=== PATIENT | male | born 1950 | race Caucasian/White ===

== ENCOUNTER 2024-11-03 13:38 | Observation (INO) | payer OTHER, SELFPAY ==
[2024-11-03] VITALS (19 sets, daily range): BP systolic 106–190; BP diastolic 56–122; PULSE 79–105; RESP 16–21; TEMP 36.2–37.1; O2SAT 90–97; BMI 33.1; BMI 33.5
--- NOTE | 2024-11-03 14:00 | EKG12_ITS ---
Test Reason : Blood Pressure : */* mmHG Vent. Rate : 99 BPM Atrial Rate : 99 BPM P-R Int : 162 ms QRS Dur : 98 ms QT Int : 338 ms P-R-T Axes : 51 -11 77 degrees QTcB Int : 433 ms Normal sinus rhythm Inferior infarct , age undetermined Cannot rule out Anterior infarct , age undetermined Abnormal ECG Confirmed by RUI GRACE, ALVIN ([id number]), news editor MARTHA TIAN ([id number]) on 11/07/2024 10:55:07 AM Referred By: Confirmed By: ALVIN FABIAN MD
[2024-11-03 14:16] LABS: Absolute Lymphocyte Count 1.12 X10^3/uL (0.83-4.51); Absolute Neutrophil Count 6.3 X10^3/uL (2.0-7.7); Basophil# 0.04 X10^3/uL; Basophil% 0.5 % (0-1); Eosinophil# 0.11 X10^3/uL; Eosinophils% 1.3 % (0-5); Hematocrit 44.1 % (40-54); Hemoglobin 15.3 g/dL (13.0-16.5); Lymphocyte # 1.12 X10^3/ul (0.83-4.51); Lymphocyte % 13.6 % (19-41); Mean Corp Hgb Conc 34.7 g/dL (32-36); Mean Corpuscular Hgb 31.4 pg (27.0-32.0); Mean Corpuscular Volume 90.6 fL (80-94); Monocyte# 0.66 X10^3/uL; NRBC Flagged by Analyzer 0 % (0-5); Neutrophil # 6.28 X10^3/uL (2.7-7.7); Neutrophil % 76.4 % (47-70); Platelet Count 219 K/mm3 (150-450); RBC Distribution Width CV 13.1 % (11.6-14.6); RBC Distribution Width SD 43.7 fl (35.1-43.9); Red Blood Count 4.87 M/mm3 (4.6-6.2); White Blood Count 8.2 K/mm3 (4.4-11.0)
--- NOTE | 2024-11-03 14:20 | RAD_ITS ---
EXAM: XR Left Hand Complete, 3 or More Views CLINICAL INDICATION: INJURY/PAIN TECHNIQUE: Frontal, lateral and oblique views of the left hand. COMPARISON: No relevant prior studies available. FINDINGS: BONES/JOINTS: Unremarkable. No acute fracture. No dislocation. SOFT TISSUES: Lacerated 5th metacarpal. The distal fragment is placed laterally. Laceration of the 4th proximal phalanx with the distal fragment angulated medially. Soft tissue swelling. No radiopaque foreign body. RAD/Hand Min 3 Views IMPRESSION: Severe laceration of the 4th and 5th fingers as above. Reading Location: [facility]
[2024-11-03] MEDS: Cefazolin 1 GM/50 ML BAG IV (14:24)
[2024-11-03] MEDS: Ondansetron 4 MG/2 ML Vial IV (14:25)
[2024-11-03] MEDS: HYDROmorphone 1 MG/ML Syringe 0.5 MG IV ×2 (14:25→15:22)
[2024-11-03] MEDS: Diphth,Pertuss(Acell),Tet Vac 0.5 ML Vial IM (14:28)
[2024-11-03 14:46] LABS: Anion Gap 11 (5-15); BUN 18 mg/dL (4-19); BUN/Creat Ratio 20.3 RATIO (10-20); Calcium,Total 9.1 mg/dL (7.6-11.0); Carbon Dioxide 23.5 mmol/L (21.0-32.0); Chloride 107 mmol/L (98-108); Creatinine, Serum 0.91 mg/dL (0.70-1.20); EST Glomerular Filtration Rate 89 (>60); Estimated Creatinine Clearance 71.08 ml/min (50-250); Glucose 151 mg/dL (70-99); Potassium 3.9 mmol/L (3.3-5.1); Sodium Level 141 mmol/L (133-145)
--- NOTE | 2024-11-03 14:48 | EX.ED.GENINJ ---
HPI History of Present Illness Chief Complaint: Trauma Detail of Chief Complaint: Partial amputation ulnar side of left hand Informant: patient Onset/Context/Timing Onset: Today and Hours Mechanism/Context: Blunt Injury Location of pain/injuries: Left hand Location: Left hand, little finger and ring finger Current Severity: Moderate Maximum Severity: Severe Worsened by: Injury Relieved by: nothing Associated Symptoms Associated Symptoms: Positive for Loss of function Narrative Narrative: Patient is a 74-year-old [id number] male. He denies allergies to antibiotics. Tetanus is not up-to-date. Patient has amputation of the left little finger comminuted open fracture involving the middle and proximal phalanx of the left ring finger. He has absent 2 point discrimination of the left ring finger. The proximal portion of the fifth metacarpal is exposed. He is on no anticoagulant or antithrombotic. He is uncertain of medicines he is taking. He asked for me to wait for his to arrive. Patient states he has not eaten or had anything to drink since 12 noon. Tetanus Immunization: Unknown Prior similar symptoms: No Recent Illness/Hospitalization: No PFSH PFSH Medical History no medical history Allergy/AdvReac Type Severity Reaction Status Date / Time No Known Allergies Allergy Verified 11/03/24 13:45 Family History no significant family his Surgical History no surgical history Social History (Updated 11/03/24 @ 14:[address] Duy Davis MD) household members: spouse Smoking Status: Light Smoker (<10/day) ROS ROS ED Constitutional Constitutional ED: Denies chills, fever(s) or subjective Eyes Eyes: Denies blurry vision or change in vision Cardiovascular Cardiovascular: Denies chest pain or palpitations Respiratory/Chest Respiratory/Chest: Denies cough or dyspnea Gastrointestinal Gastrointestinal: Denies nausea or vomiting Integumentary Reports rash and other Details: Patient has amputation of the left little finger loss of tissue involving the ulnar side of the hand and left ring finger. ; Denies abscess or Abrasions Neurologic Neurologic: Reports paresthesias Psychiatric Psychiatric: Denies anxiety Hematologic/Lymphatic Hematologic/Lymphatic: Denies easy bleeding or easy bruising EXAM Physical Exam Const Vital Signs: 11/03/24 13:40 11/03/24 13:45 11/03/24 14:38 Temperature 98.7 F 98.7 F Temperature Source Oral Oral Pulse Rate 105 H 105 H 95 Respiratory Rate 18 18 21 H Blood Pressure 181/99 H 166/100 H 190/97 H Blood Pressure Mean 126 122 128 Pulse Ox 94 94 95 Oxygen Delivery Method Room Air Room Air Room Air 11/03/24 14:45 Temperature 98.7 F Temperature Source Oral Pulse Rate 95 Respiratory Rate 18 Blood Pressure 190/97 H Blood Pressure Mean 128 Pulse Ox 95 Oxygen Delivery Method Room Air Positive well nourished and well developed General Appearance ED: well developed; Negative for NAD HEENT atraumatic; Negative for tenderness Nose: Negative for septum abnormal Eyes PERRL and EOMs intact bilaterally Resp normal respiratory effort and clear to auscultation bilaterally Cardio regular rhythm, S1 normal heart sound, S2 normal heart sound and no murmurs Rate: regular rate GI normal to inspection, nondistended, normoactive bowel sounds, non-tender, non-distended and no masses Extremity Negative for normal to inspection or full ROM General Extremety ED: Yes deformity General Extremity: deformity Neuro oriented x3, CN's II-XII intact bilaterally, No moves all extremities, No no focal motor deficits and No no sensory deficits noted Neuro Narrative: Patient has absent 2 point segmentations left ring finger. Surprise Coma Scale: document GCS findings Spontaneous Obeys Commands Oriented 15 Sensorium / Orientation: alert Psych mental status grossly normal and thought process normal Skin Skin Narrative: Amputation of the ulnar distal portion of the left hand, left little finger and skin loss with open fracture of the proximal and middle phalanx of the ring finger with tendon involvement and neurovascular involvement MDM MDM MDM Narrative Medical decision making narrative: Patient was made NPO. See 1 g of Ancef and tetanus was updated. Plastic/hand was paged. Lab Data Attestation: I reviewed the patient's lab results. Lab results narrative: CBC is unremarkable. BMP is unremarkable. Glucose is elevated 151 with a normal CO2 anion gap. Labs: Laboratory Results - last 24 hr 11/03/24 14:08 WBC 8.2 RBC 4.87 Hgb 15.3 Hct 44.1 MCV 90.6 MCH 31.4 MCHC 34.7 RDW Std Deviation 43.7 RDW Coeff of Angelita 13.1 Plt Count 219 MPV 9.0 Immature Gran % (Auto) 0.200 Neut % (Auto) 76.4 H Lymph % (Auto) 13.6 L [place] % (Auto) 8.0 Eos % (Auto) 1.3 Baso % (Auto) 0.5 Absolute Neuts (auto) 6.3 Absolute Lymphs (auto) 1.12 Nucleated RBC % 0 Sodium 141 Potassium 3.9 Chloride 107 Carbon Dioxide 23.5 Anion Gap 11 BUN 18 Creatinine 0.91 Estim Creat Clear Calc 71.08 Est GFR (MDRD) Non-Af 89 BUN/Creatinine Ratio 20.3 H Glucose 151 H Calcium 9.1 Radiography Chest X-Ray - ED: Read by ED Physician (Three-view x-ray of the left hand was obtained with the amputated digit (left little finger patient has amputation of the distal portion of the fifth metacarpal bone of the left little finger reveals multiple fractures and in my opinion is not salvageable. There is no fragments of the metacarpal pr) Diagnostic Testing: Clinical Impression(s) from Imaging Studies Hand X-Ray 11/03/24 14:20 IMPRESSION: Severe laceration of the 4th and 5th fingers as above. Reading Location: [facility] EKG Initial EKG: Attestation: I personally reviewed and interpreted this EKG as follows: Interpretation: Sinus Rhythm (Rate is 99. [place] interval is under 60 ms. Cures duration 90 durations 138 ms. [place] is normal. I am in disagreement with the computer with respect to inferior infarct of undetermined age. Patient anterior leads are not consistent with an acute CA either.) Management Discussion w/another healthcare provider: Sleeper Cutter (Dr. Azeem Looney saw patient in the ER. Patient is going to the OR.) Discharge Plan Triage Chief Complaint: Trauma ED Provider: Duy Davis Dx/Rx/DC Orders Clinical Impression: Open fracture of fifth metacarpal bone of left hand, Amputation of left little finger with complication, Open comminuted fracture of proximal phalanx of finger Print Language: Wolof
--- NOTE | 2024-11-03 15:45 | AMP_PTH ---
PATIENT: MITRA GARCIA LOC: [facility] U#:[id number] AGE/SX: 74/M ROOM: [facility] RE11/03/[address]: Dr. Azeem Looney MD : 1950 BED: 1 DIS: 11/04/2024 SPEC #: [id number] RECD: 11/04/24 13:25 STATUS: IMELDA REJessica #: [id number] KENYA: 11/03/24 15:[address]: Azeem Looney DEPT: SURGICAL PATHOLOGY RECD BY: Ilya Lew ENTERED: 11/04/24 13:26 SP TYPE: Amputation OTHR DR: Dr. Rj Leong, DO Tissues: A - Finger, NOS Procedures: Decalcification bone/plaque Surgery Specimen Level II HEADER OPERATION: Repair, tendon hand, foot, digit PRE-OP DIAGNOSIS: Open comminuted fracture of proximal phalanx of finger, amputation of left little finger with complication, open fracture of fifth metacarpal bone of left hand TISSUE SUBMITTED: A- Left small and ring fingers MICROSCOPIC DIAGNOSIS A. Left small and left ring fingers, amputation: * Reactive/degenerative change. MICROSCOPIC DESCRIPTION Slides are reviewed. GROSS DESCRIPTION A. Received in fixative is one container labeled with the patient's name and designated Left small and ring fingers. The specimen consists of two fingers. One finger measures 6 x 2.6 x 2.2cm and the other finger with a tail of soft tissue on it measures altogether 14.5 x 2 x 1.7cm. One transverse section of each finger is submitted after decalcification. RS2 JS.mr 11/07/2024 CPT:38239,11249
--- NOTE | 2024-11-03 15:52 | PCM.PRE.AN2 ---
ASA Classification* ASA Classification ASA Classification: 2 and E (HTNsive, patient is emergent and has no known medical history. NO follow up with physician ) Assessment & Plan Anesthesia* Anesthesia Assessment Anesthesia Assessment: Discussed sedation and/or anesthesia options, risks, benefits, and alternatives with patient/parents/legal guardian/POA. Questions invited. The patient/parents/legal guardian/POA seems to understand and agrees to proceed with anesthesia plan. Reviewed the physical assessment, medical history, allergy history and patient home medications list prior to surgery/procedure/anesthetic and documented any changes. Performed airway and anesthesia risk assessments. Anesthesia Type Anesthesia Type: General (RSI) History Source History Obtained from:: Patient and Chart Anesthesia Focused Assessment* Temperature: 98.7 F Pulse Rate: 95 Blood Pressure: 163/96 Respiratory Rate: 18 Pulse Ox: 97 Airway Assessment Mouth opens: >3 cm Mallampati Score: III Teeth Condition: Chipped/Broken and Missing Neck Range of motion (ROM): Full ROM Focused Labs Anesthesia Preop lab: CBC WBC 8.2 K/mm3 (4.4-11.0) 11/03/24 14:08 11/03/24 RBC 4.87 M/mm3 (4.6-6.2) 11/03/24 14:08 11/03/24 Hgb 15.3 g/dL (13.0-16.5) 11/03/24 14:08 11/03/24 Hct 44.1 % (40-54) 11/03/24 14:08 11/03/24 Plt Count 219 K/mm3 (150-450) 11/03/24 14:08 11/03/24 CHEMISTRY Potassium 3.9 mmol/L (3.3-5.1) 11/03/24 14:08 11/03/24 Sodium 141 mmol/L (133-145) 11/03/24 14:08 11/03/24 BUN 18 mg/dL (4-19) 11/03/24 14:08 11/03/24 Creatinine 0.91 mg/dL (0.70-1.20) 11/03/24 14:08 11/03/24 Glucose 151 mg/dL (70-99) H 11/03/24 14:08 11/03/24 COAG Pre-Assessment Diagnosis/Proposed Procedure Planned Operative Procedure(s): Repair, tendon, hand, foot (L) Anesthesia History Anesthesia History - painter apprentice: Anesthesia History - painter apprentice Hx Hospitalization Any Problems With Anesthesia Cholinesterase deficiency You/Your Family Experience fever (hyperthermia) with Relationship Recent Exposure to Contagious Disease Does patient have nerve stimulator Patient instructed to have device shut off --Does patient have Pacemaker or ICD? When Was Last Pacemaker Check QUESTION #4 FULL TEXT: You/Your Family Experience fever (hyperthermia) with Anesthesia Any additional information?: No Last Oral Intake Last Oral intake: Last Oral Intake NPO since Meds taken in AM with sips of water? Meds patient instructed to take am of surgery Any additional information?: Yes NPO since: 13:00 Meds patient instructed to take am of surgery: Had sausage sandwich around 1 PM PONV PONV - painter apprentice: PONV - painter apprentice Female HX of Motion Sickness HX of N/V After Surgery Non-Smoker Duration of Surgery greater than 60 minutes Number of Risk Factors PONV Score Any additional information?: No Height & Weight Height & Weight: Anesthesia: Height & Weight Height 5 ft 4 in 11/03/24 13:40 Weight: 87.6 kg 11/03/24 13:40 Body Mass Index (BMI) 33.1 11/03/24 13:40 Respiratory Assessment Respiratory Assessment - painter apprentice: Respiratory Tract Infection Hx - painter apprentice Hx Respiratory Tract Infection Any additional information?: No STOP Sleep Apnea STOP Sleep Apnea - painter apprentice: STOP Sleep Apnea - painter apprentice Hx Hypertension Hx Sleep Apnea CPAP BIPAP Do you snore loudly (louder than talking or can be heard Do you often feel tired/ fatigued/ sleepy during daytime? Has anyone observed you stop breathing during sleep? STOP Results QUESTION #5 FULL TEXT : Do you snore loudly (louder than talking or can be heard through closed doors)? Any additional information?: No Tobacco Use History Tobacco Use History - painter apprentice: Tobacco Use History - painter apprentice Tobacco Use Smoking Status Light Smoker (<10/day) 11/03/24 14:52 Hx Tobacco Use Years Smoking Packs Smoked per Day Smoking Cessation Date was within the last 15 years Hx Smoking Cessation Date Hx Smoking Cessation Counseling Any additional information?: No Hematologic Medial History Hematologic Hx - painter apprentice: Hematologic Medical Hx - custom van converter Hx of Blood Transfusion Hx of Transfusion in last 3 Months Date of Last Transfusion (if within last 3 months) Ever experience any problems with transfusion(s)? Specify any problems Hx of Preganancy in last 3 Months Nurse Filling Out Transfusion & Questions: Date: Time: Patient unable to answer at this time (ie. confused, unrespo Any additional information?: No /Reproduction History /Reproductive History - painter apprentice: /Reproductive Hx- painter apprentice Hx Now Gestational Age (in weeks): EDC: Hx Hx Para Hx Section SAB Any additional information?: No Active Medications Active Medications: Patient denies taking any medications other than MVT PFSH Medical History no medical history no medical history (patient denies any medical history) Allergy/AdvReac Type Severity Reaction Status Date / Time No Known Allergies Allergy Verified 11/03/24 13:45 Family History no significant family his Surgical History no surgical history no surgical history (patient denies surgical history) Social History (Updated 11/03/24 @ 14:[address] Duy Davis MD) household members: spouse Smoking Status: Light Smoker (<10/day) Review of Systems (Anesthesia) ROS Narrative System reviewed and no additional complaints, except as documented. Physical Exam Const alert, oriented x3 and average body habitus Resp normal respiratory effort, normal air movement and clear to auscultation bilaterally Cardio regular rate, regular rhythm, no murmurs and diaphoretic
--- NOTE | 2024-11-03 15:58 | EX.PCM.CON.S ---
Assessment & Plan Assessment/Plan (1) Open comminuted fracture of proximal phalanx of finger: (2) Amputation of left little finger with complication: (3) Open fracture of fifth metacarpal bone of left hand: HPI Consult Data Date of Consult: 11/03/24 HPI Narrative HPI Narrative: MITRA GARCIA is a 74 M who presents with severe left hand trauma after a saw injury that happened earlier this afternoon (approximately 3 hours ago). He last ate at noon. Patient reports he was cutting some wood in his shop and his hand slipped and went into the saw. He is reporting sharp severe pain in the left upper extremity worsened by movements and improved with rest and elevation. No past history of blood clots or any family history of blood clots or bleeding diatheses. He does not use any tobacco products. Patient is a right-handed martinez ([facility] Medical History no medical history Allergy/AdvReac Type Severity Reaction Status Date / Time No Known Allergies Allergy Verified 11/03/24 13:45 Family History no significant family his Surgical History no surgical history Social History household members: spouse Smoking Status: Light Smoker (<10/day) Physical Exam Narrative Left upper Extremity Inspection/palpation: Pulsatile bleeding from common digital artery between the ring and small finger metacarpal that was stopped with a hemostat at bedside. Ulnar-sided severe saw injury with complete amputation of the small finger and partial amputation and mingling of the ring finger. Motor: Able to bend and extend all MP, PIP, and DIP joints of the radial 3 digits. He is able to abduct his index finger (first dorsal interossei motor function intact). Sensory: Intact to light touch on the radial and ulnar borders of the radial 3 digits. No sensation on the radial side of the ring finger. Vascular: Finger tips are warm and well perfused with <2 second capillary refill of the radial 3 digits. Poor perfusion to the remaining ring fingertip. Lab / Micro Data 11/03/24 14:08 11/03/24 14:08 Labs: Laboratory Results - last 24 hr 11/03/24 14:08: WBC 8.2, RBC 4.87, Hgb 15.3, Hct 44.1, MCV 90.6, MCH 31.4, MCHC 34.7, RDW Std Deviation 43.7, RDW Coeff of Angelita 13.1, Plt Count 219, MPV 9.0, Immature Gran % (Auto) 0.200, Neut % (Auto) 76.4 H, Lymph % (Auto) 13.6 L, [place] % (Auto) 8.0, Eos % (Auto) 1.3, Baso % (Auto) 0.5, Absolute Neuts (auto) 6.3, Absolute Lymphs (auto) 1.12, Nucleated RBC % 0, Sodium 141, Potassium 3.9, Chloride 107, Carbon Dioxide 23.5, Anion Gap 11, BUN 18, Creatinine 0.91, Estim Creat Clear Calc 71.08, Est GFR (MDRD) Non-Af 89, BUN/Creatinine Ratio 20.3 H, Glucose 151 H, Calcium 9.1 Imaging Radiology Impression Hand X-Ray 11/03/24 14:20 IMPRESSION: Severe laceration of the 4th and 5th fingers as above. Reading Location: [facility] EXAM: XR Left Hand Complete, 3 or More Views CLINICAL INDICATION: INJURY/PAIN TECHNIQUE: Frontal, lateral and oblique views of the left hand. COMPARISON: No relevant prior studies available. FINDINGS: BONES/JOINTS: Unremarkable. No acute fracture. No dislocation. SOFT TISSUES: Lacerated 5th metacarpal. The distal fragment is placed laterally. Laceration of the 4th proximal phalanx with the distal fragment angulated medially. Soft tissue swelling. No radiopaque foreign body. RAD/Hand Min 3 Views IMPRESSION: Severe laceration of the 4th and 5th fingers as above. Reading Location: [facility] I reviewed the xrays Charges/Coding Multi Select Codes Visit Charges Office Visit/Consults: 49152 OP Consult L4 (With 57 modifier (decision to take to surgery immediately))
[2024-11-03] MEDS: Cefazolin 2 GM in Syringe IV (16:50)
--- NOTE | 2024-11-03 16:50 | RAD_ITS ---
PROCEDURE: HAND MIN 3 VIEWS REASON FOR EXAM: PAIN TECHNIQUE: 6 view(s) of the left hand COMPARISON: None. FINDINGS: 17 seconds of fluoroscopy of the left hand was utilized in the operating room during amputation of the 4th and 5th digits in 6 images are submitted for interpretation. RAD/Hand Min 3 Views IMPRESSION: Fluoroscopy during surgery. Reading Location: [id number]
[2024-11-03] MEDS: Albumin Human 25% (100 mL) 25 GM/100 ML BAG IV (17:20)
[2024-11-03 17:43] LABS: Hematocrit 38.4 % (40-54); Hemoglobin 12.8 g/dL (13.0-16.5)
[2024-11-03] MEDS: Bupiv/Epi 0.25% 30 ML Vial (17:50)
--- NOTE | 2024-11-03 18:32 | PCM.PN.BLA ---
Progress Note BRIEF OPERATIVE NOTE: Preoperative diagnosis: Left hand trauma Post-operative diagnosis: Same Procedure preformed: Taken back to the OR for revision amputation of the small and ring fingers, with hand closure (ulnar left hand). Also long finger tip trauma wash out and closure. Post-operative plan: Elevate LUE above heart. No dressing change until POD 1 with doctor. Labs in the morning. PRN pain medications. Call me with any problems [phone]
--- NOTE | 2024-11-03 20:00 | PCM.POST.ANE ---
Anesthesia: Postop Eval I Current Vital Signs Temperature: 97.1 F Pulse Rate: 79 Blood Pressure: 142/83 Respiratory Rate: 16 Pulse Ox: 96 Oxygen Delivery Method: Room Air Assessment Airway patent: Yes Spontaneous unlabored respirations: Yes Mental status: Awake nausea: No Vomiting: No Anesthesia Complication: No Fluid Hydration Crystalloid volume administer (ml): 1,000 Total IV fluid infused: 1,000 Progress Note Anesthesia document: Postop Eval 1 completed: Yes
--- NOTE | 2024-11-03 20:01 | PCM.POSTANE2 ---
Anesthesia Postop Eval I Sum Postop Eval Completion status Anesthesia document: Postop Eval 1 completed: Yes Anesthesia Postop Eval I Summary Anesthesia Postop Eval I Summary: Anesthesia Postop Eval I: Assessment Summary Airway patent Yes 11/03/24 20:01 Spontaneous unlabored Yes 11/03/24 20:01 respirations Mental status Awake 11/03/24 20:01 nausea No 11/03/24 20:01 Vomiting No 11/03/24 20:01 Anesthesia Postop Eval I: Fluid Summary Crystalloid volume administer 1,000 11/03/24 20:01 (ml) Colloids volume administered ( ml) Blood Product volume administered (ml) Total IV fluid infused 1,000 11/03/24 20:01 Anesthesia Postop Eval I: Summary Notes Anesthesia Complication No 11/03/24 20:01 Anesthesia Complication Comment: Post-operative progress note Anesthesia: Postop Eval II Evaluation Mental status: Awake Pain Level: 0 nausea: No Vomiting: No Complications Anesthesia Complication: No
[2024-11-03] MEDS: oxyCODONE 5 MG Tablet PO (22:02)
[2024-11-03] MEDS: HYDROmorphone 0.5 MG/0.5 ML SYRINGE IV (23:50)
[2024-11-03] MEDS: 0.9% Saline Lock 10 ML Syringe IV (23:51)
[2024-11-04] MEDS: Acetaminophen 325 MG Tablet 650 MG PO ×2 (03:13→10:33)
[2024-11-04] MEDS: oxyCODONE 5 MG Tablet PO ×2 (03:14→08:02)
[2024-11-04 03:58] VITALS: BP 151/73; PULSE 82; RESP 16; TEMP 36.6; O2SAT 95
[2024-11-04] MEDS: Heparin Injection (Vial) 5,000 UNIT/ML VIAL 5000 UNIT SC (05:52)
[2024-11-04 06:20] LABS: Absolute Lymphocyte Count 0.45 X10^3/uL (0.83-4.51); Absolute Neutrophil Count 10.9 X10^3/uL (2.0-7.7); Basophil# 0.01 X10^3/uL; Basophil% 0.1 % (0-1); Hemoglobin 12.6 g/dL (13.0-16.5); Lymphocyte # 0.45 X10^3/ul (0.83-4.51); Lymphocyte % 3.8 % (19-41); Mean Corp Hgb Conc 33.2 g/dL (32-36); Mean Corpuscular Hgb 31.2 pg (27.0-32.0); Mean Corpuscular Volume 94.1 fL (80-94); Mean Platelet Vol. 9.4 fl (6.2-12.0); Monocyte# 0.37 X10^3/uL; Monocyte% 3.2 % (0-10); NRBC Flagged by Analyzer 0 % (0-5); Neutrophil # 10.85 X10^3/uL (2.7-7.7); Neutrophil % 92.5 % (47-70); POSITIVE DIFFERENTIAL YES; Platelet Count 219 K/mm3 (150-450); RBC Distribution Width CV 13.2 % (11.6-14.6); RBC Distribution Width SD 45.9 fl (35.1-43.9); Red Blood Count 4.04 M/mm3 (4.6-6.2); White Blood Count 11.7 K/mm3 (4.4-11.0)
--- NOTE | 2024-11-04 06:20 | PCM.OPRPT ---
Operative Report (Standard) Operative Information Date of Procedure: 11/03/24 Pre-Operative Diagnosis: Left hand saw injury with amputation of the small finger at the metacarpal and mutilation of the ring finger, with an open tuft fracture to the long finger. Post-Operative Diagnosis: Same Surgery/Procedure Performed: 1) Debridement and wash out of left ulnar hand wound with open fracture wash out (small finger metacarpal shaft) including foreign body (dirt), fascia, muscle, and bone debridement (CPT: 20008) 2) Debridement and wash out of left long finger distal tuft fracture with debridement of foreign body (dirt), subcutaneous tissue, and bone (CPT: 18375) 3) Revision amputation of the left ring finger to the level of the P1 base (CPT: 82231) 4) Complex closure of left ulnar hand wound and left long finger wound, 11 cm (both curved and stellate wounds) (13186, 33588) senior rd engineer: Yes Clinical Nursing Manager: Verito Heaton Tasks completed by auction assistant: Retracting Type of Anesthesia: General/Supplemental (20 cc of 0.25% Marcaine with 1:200,000 epinephrine ) RN Documented Start/Stop Times: Operation Date: 11/03/24 15:45 Case Time Into Pre-Op 11/03/24 16:02 Anesthesia Start 11/03/24 16:35 Into Room 11/03/24 16:35 Procedure Start 11/03/24 16:54 Procedure End 11/03/24 18:00 Anesthesia End 11/03/24 18:10 Out of Room 11/03/24 18:10 Into Recovery 11/03/24 18:15 Into Phase II Recovery 11/03/24 19:15 Out of Recovery 11/03/24 19:15 Out of Phase II 11/03/24 19:33 Procedure Start Time: 16:54 Procedure Stop Time: 18:00 Select all DRAINS/GRAFTS/IMPLANTS that apply: Drains (Quarter-inch Sieper drain) Drain details: Tunneled underneath ulnar hand closure and sutured into place with a 2-0 silk suture Estimated Blood Loss: 25 cc Specimen collected: Yes Description of specimen(s) removed: Amputated ring finger and small finger both sent to pathology Description of surgery: Indications: Desi Rahman is a 74-year-old [employer] man who was working in a [employer] and had an accident with the gas powered saw today and his left ulnar hand suffered a small finger complete amputation at the level of the distal metaphysis of the metacarpal, his ring finger was mutilated at the level of the P1 shaft, and his long finger sustained a fingertip injury with an open distal tuft fracture. He presented to the emergency department at [facility] where plastic surgery was consulted. He was taken emergently to the operating room. I talked to him about expectations preoperatively regarding the ring and small finger (he understood the risks benefits and alternatives to attempted salvage of these digits, and after discussion he understood plan to perform revision amputations, washout and closure of the wounds). Furthermore we talked about general risks of surgery (stroke, DVT), and likelihood of need for wound care and the possibility of infection. Procedure details: Patient was correct identified in preoperative holding and taken emergently to the operating room where he was administered general anesthesia. His left upper extremity was prepped and draped in sterile fashion. A timeout was performed. A tourniquet was inflated on the left arm to 250 mmHg. 3 L of normal saline was used to washout the wounds (including the open fractures to the left small finger metacarpal, the proximal phalanx of the ring finger, and the distal tuft of the long finger) on the ulnar left hand. In the base of the wound, a hemostat had been placed on the common digital artery for the small and ring fingers. This was removed and the artery tied with 3-0 Vicryl suture. A traction neurectomy was then performed on the common digital nerve adjacent to it. Mangled tendon ends that were at the base of the wound that were previously traveling towards the small finger were then excised and debrided. The open fracture was washed out and debrided (remove dirt and bone fragments) on the ulnar hand (metacarpal fracture) with a rongeur to smooth out the edges, further hemostasis obtained with Bovie electrocautery (at this point the tourniquet was let down). Attention was then turned to the ring finger. The base of P1 appeared to be viable. An x-ray was obtained and careful dissection with a [place] elevator was performed distal to the insertion of the lumbricals at the base of P1. A sagittal saw was then used to cut the bone at the metaphysis to save the base of P1 so as to preserve palm size and potentially have slightly better director marketing communications (extensor mechanism where lumbricals insert was viable at this level). The rest of the bone and the mangled skin of the ring finger was excised with a 15 blade scalpel, and traction neurectomies were performed on the digital nerves. Hemostasis obtained with Bovie electrocautery on the distal digital arteries and the rest of the wound edges. The wound was then washed out again with 450 cc of Irrisept followed by copious amounts normal saline. A portion of the remaining extensor connelly was then rotated over the bone stump incision and replaced with a 3-0 Monocryl suture. The remaining volar finger skin that was viable was rotated and advanced over the P1 amputation this was sutured into place with a 3-0 Monocryl deep dermal suture followed by 3-0 nylon interrupted sutures. The rest of the ulnar wound was then closed over 1/4 inch Sieper drain with a 3-0 Monocryl deep dermal suture followed by 3-0 nylon interrupted sutures. While the bone was completely covered, the proximal portion of the wound had exposed fat and a small portion of exposed intrinsic muscle, as the skin could not be closed in this location without significant tension as there was significant loss of tissue and subsequent swelling. Attention was then turned to the long finger. C arm was used to confirm that there was a distal tuft fracture as there was bone at the base of the wound at the start of the case. The fingertip had been avulsed with a small portion of distal phalanx bone. This open fracture was again washed out with copious amounts normal saline and debrided (dirt and bone fragments at the base of the wound). The remaining nail was then elevated carefully with a [place] elevator off of the sterile matrix. The bone was trimmed back with a rongeur approximately 3 mm so as to enable a volar advancement flap of fingertip skin and fat. The volar advancement flap was then sutured to the nail plate with a 3-0 nylon interrupted suture and provided coverage over the bone. It was sutured loosely. Xeroform was applied, as well as a bulky gauze and Coban dressing. 20 cc of core percent Marcaine with epinephrine was used for an ulnar hand block for pain control. Patient tolerated the procedure well. Postoperative plan: Patient admitted overnight for pain control and wound care. Anticipate drain removal in the morning and then twice daily wet to dry dressings to the proximal ulnar hand wound. Close follow-up early next week. Surgical Findings: Unable to salvage ring finger and unable to replant small finger. Open fractures to the metacarpal shaft of the small finger, and open fractures to the ring finger. Open fracture to the tuft of the long finger. No apparent CMC joint instability of the base of the small finger metacarpal when stressed/examined in the OR Intact ulnar side of the arch (not visualized in the base of the wound) Complications Complications: No
[2024-11-04 08:00] VITALS: BP 134/86; PULSE 91; RESP 18; TEMP 36.6; O2SAT 92
[2024-11-04] MEDS: Docusate Sodium 100 MG Capsule PO (08:02)
[2024-11-04] MEDS: Cefazolin 2 GM in Syringe IV (08:02)
[2024-11-04] MEDS: 0.9% Saline Lock 10 ML Syringe IV (08:03)
--- NOTE | 2024-11-04 09:13 | CASEMGMT ---
BEVERLEY WU Assessment: Face to Face with pt for initial transition planning/care coordination assessment. RN JAZMIN introduced self and role at [facility], pt voices understanding and consents to assessment. Pt is A&O x4 and answers all questions appropriately at this time. Pt lying in bed in no distress, sitting at bedside. Care providers, pharmacy, and demographics verified/updated. Strata: Not available at this time. Admitting Dx: Hand Injury PCP: Natalio Castillo Medical Specialists: Denies Preferred Pharmacy: [facility] Insurance: [employer] Prescription Benefit: yes LNOK: , Martina Living Arrangements: Pt lives with in a 2 level home with 3-4 steps to enter. ADLs: I at baseline. Transportation: Pt hires [employer] drivers for transportation. DME: walker, wheelchair available but does not use them. HHC/SNF: Denies Hx of. Pt states no concerns with going home at time of dc. states she observed the dressing change this morning and feels comfortable doing the dressing changes at home. Pt states no further concerns/needs. CM to follow. Advised pt to ask CM if any further question/concerns/needs arise, voices understanding. Pt Goal: Home Plan: Home with family support. Eduardo LOWERY CM
[2024-11-04 09:16] LABS: Anion Gap 11 (5-15); BUN 19 mg/dL (4-19); Calcium,Total 9.1 mg/dL (7.6-11.0); Carbon Dioxide 21.9 mmol/L (21.0-32.0); Chloride 105 mmol/L (98-108); Creatinine, Serum 0.83 mg/dL (0.70-1.20); EST Glomerular Filtration Rate 92 (>60); Estimated Creatinine Clearance 78.34 ml/min (50-250); Glucose 129 mg/dL (70-99); Potassium 4.5 mmol/L (3.3-5.1); Sodium Level 139 mmol/L (133-145)
--- NOTE | 2024-11-04 10:38 | DS.PCM_ITS ---
<Statement entered by Azeem Looney MD - 11/04/24 11:51> Pt seen & evaluated w/ROMERO. I personally interviewed & exam the pt. I was involved in all aspects of pt's orders, interpretation of results & treatment Providers Date of Admission: 11/03/24 Date of Discharge: 11/04/24 Primary Care Physician: Dr. Rj Leong, DO Consultations 11/04/24 06:01 Consult: Onc/Wound/service provider Routine Comment: Reason for Consult:: left hand Reason For Visit: HAND INJURY Diagnosis Discharge Diagnosis (1) Open comminuted fracture of proximal phalanx of finger: Status: Acute Code(s): S62.619B - Displaced fracture of proximal phalanx of unspecified finger, initial encounter for open fracture (2) Amputation of left little finger with complication: Status: Acute Code(s): S68.117A - Complete traumatic metacarpophalangeal amputation of left little finger, initial encounter (3) Open fracture of fifth metacarpal bone of left hand: Status: Acute Code(s): S62.307B - Unspecified fracture of fifth metacarpal bone, left hand, initial encounter for open fracture Medications at Discharge Home Medications cephalexin 500 mg capsule 500 mg PO Q8H 7 days #21 caps 11/04/24 oxycodone 5 mg tablet 5 mg PO Q8H PRN pain 5 days #14 tabs 11/04/24 Hospital Course Operations - (Left hand debridement/washout and revision amputation left ring finger, left long finger complex closure) Summary of Care Provided Minutes Spent on Discharge: 25 Hospital Course: Desi Rahman is a 74-year-old [facility] man who was working in a [employer] and had an accident with the gas powered saw today and his left ulnar hand suffered a small finger complete amputation at the level of the distal metaphysis of the metacarpal, his ring finger was mutilated at the level of the P1 shaft, and his long finger sustained a fingertip injury with an open distal tuft fracture. He presented to the emergency department at [facility] where plastic surgery was consulted. He was taken emergently to the operating room. I talked to him about expectations preoperatively regarding the ring and small finger (he understood the risks benefits and alternatives to attempted salvage of these digits, and after discussion he understood plan to perform revision amputations, washout and closure of the wounds). Furthermore we talked about general risks of surgery (stroke, DVT), and likelihood of need for wound care and the possibility of infection. Date of Procedure: 11/03/24 Pre-Operative Diagnosis: Left hand saw injury with amputation of the small finger at the metacarpal and mutilation of the ring finger, with an open tuft fracture to the long finger. Post-Operative Diagnosis: Same Surgery/Procedure Performed: 1) Debridement and wash out of left ulnar hand wound with open fracture wash out (small finger metacarpal shaft) including foreign body (dirt), fascia, muscle, and bone debridement (CPT: 18920) 2) Debridement and wash out of left long finger distal tuft fracture with debridement of foreign body (dirt), subcutaneous tissue, and bone (CPT: 83121) 3) Revision amputation of the left ring finger to the level of the P1 base (CPT: 18263) 4) Complex closure of left ulnar hand wound and left long finger wound, 11 cm (both curved and stellate wounds) (10766, 20769) Discharged home 11/04/24 with wound care, elevation. Physical Exam Const alert and oriented x3 General Appearance: cooperative HEENT normocephalic Eyes General Eye: normal appearance of both eyes Neck full ROM Resp normal respiratory effort Effort and Inspection: able to speak in complete sentences Cardio regular rate Back/Spine normal ROM Extremity Extremity Narrative: Left hand elevated. Skin Wound Narrative: Left hand and left long finger incisions are covered with xeroform and gauze, secured with MADELIN wrap. Neuro oriented x3 Psych mental status grossly normal Weight / BMI Weight Weight: 195 lb 3.2 oz Body Mass Index (BMI) 33.5 ABG / Lab / Microbiology Data 11/04/24 05:56 11/04/24 05:56 Laboratory: Laboratory Results - last 24 hr 11/03/24 14:08: WBC 8.2, RBC 4.87, Hgb 15.3, Hct 44.1, MCV 90.6, MCH 31.4, MCHC 34.7, RDW Std Deviation 43.7, RDW Coeff of Angelita 13.1, Plt Count 219, MPV 9.0, Immature Gran % (Auto) 0.200, Neut % (Auto) 76.4 H, Lymph % (Auto) 13.6 L, Queens % (Auto) 8.0, Eos % (Auto) 1.3, Baso % (Auto) 0.5, Absolute Neuts (auto) 6.3, Absolute Lymphs (auto) 1.12, Nucleated RBC % 0, Sodium 141, Potassium 3.9, Chloride 107, Carbon Dioxide 23.5, Anion Gap 11, BUN 18, Creatinine 0.91, Estim Creat Clear Calc 71.08, Est GFR (MDRD) Non-Af 89, BUN/Creatinine Ratio 20.3 H, G lucose 151 H, Calcium 9.1 11/03/24 17:30: Hgb 12.8 L, Hct 38.4 L 11/04/24 05:56: WBC 11.7 H, RBC 4.04 L, Hgb 12.6 L, Hct 38.0 L, MCV 94.1 H, MCH 31.2, MCHC 33.2, RDW Std Deviation 45.9 H, RDW Coeff of Angelita 13.2, Plt Count 219, MPV 9.4, Immature Gran % (Auto) 0.400, Neut % (Auto) 92.5 H, Lymph % (Auto) 3.8 L, Queens % (Auto) 3.2, Eos % (Auto) 0.0, Baso % (Auto) 0.1, Absolute Neuts (auto) 10.9 H, Absolute Lymphs (auto) 0.45 L, Nucleated RBC % 0, Sodium 139, Potassium 4.5, Chloride 105, Carbon Dioxide 21.9, Anion Gap 11, BUN 19, Creatinine 0.83, Estim Creat Clear Calc 78.34, Est GFR (MDRD) Non-Af 92, BUN/Creatinine Ratio 23.0 H, Glucose 129 H, Calcium 9.1 Radiography Diagnostic Testing: Radiology Impression Hand X-Ray 11/03/24 14:20 IMPRESSION: Severe laceration of the 4th and 5th fingers as above. Reading Location: [facility] Hand X-Ray 11/03/24 16:50 IMPRESSION: Fluoroscopy during surgery. Reading Location: [id number] D/C Instructions Discharge Diet: No restrictions (high protein intake to help with wound healing) Lifting Restrictions: no left hand lifting/work. Keep left hand elevated Keep extremity elevated above heart level: Left Arm Call your doctor if your incision/area has: Continuous Slow Oozing, Increased Pain/ Swelling, Increased Redness and Foul Smelling Discharge Call your doctor if you observe: Fever of 101 or Higher, Coldness, Increased Pain, Calf discomfort and Uncontrolled pain Additional Dressing/Incision Instructions: Soak left long finger in warm water and soap twice daily for 15 minutes. Cover with xeroform gauze. Place Xeroform gauze on left hand incision. DC O2, CPAP, BIPAP Needs Home O2 Discharge instructions: No DC home with Oxygen: No Please Follow Up With: Azeem Looney MD When: Thursday November 09, 2023 at 1:15 at [facility] ([address], [address], [place] [address]) Meaningful Use Info Meaningful Use Meaningful Use Diagnoses (Choose all that apply): None applicable Ischemic Stroke Statin Dosing Therapy Reference: STATIN DOSE THERAPY REFERENCE: * Patients > 75 years receive moderate or high dose statin therapy. * Patients 75 years or YOUNGER should receive HIGH intensity statin dose unless contraindicated. You will be required to document reason for non-treatment if statin daily dose does not meet guidelines. HIGH DOSE STATIN THERAPY DAILY Atorvastatin > than or = to 40 mg Rosuvastatin > than or = to 20 mg Amlodipine + Atorvastatin > than or = to 2.5/40 mg Ezetimibe + Simvastatin 10/80 mg Simvastatin 80mg Discharge Plan Admission Attending Provider: Azeem Looney Primary Care Provider: Rj Leong Instructions Additional Instructions / Restrictions: Operations Performed: Instructions for My Care at Home or Healthcare Facility The following instructions will help you know what to expect in the days following surgery. These are general instructions. Your surgeon and therapist may give you special instructions, which vary to some degree based on your specific procedure -- follow those as directed. Do not, however, hesitate to call if you have any questions or concerns. Splint Care/Dressing Care/Wound Care * Dressings - For the long finger, change xeroform twice daily and do soaks at that time. For the soaks, boil water, let it cool, and place dial soap in a the of water and do a 10 minute soak. * For the hand, change the xeroform twice daily * Then apply a dressing with gauze * If the dressing feels too tight after you get home, it is ok to gently pull on the dressing to stretch it out/loosen it. * Avoid smoking or other tobacco products. Smoking tobacco impairs wound healing and increases the risks of post-operative complications. ? Activities * For the first 4 weeks after surgery, try to balance your activity, allowing time for rest. * Avoid lifting, pushing, or pulling anything over 5 pounds. * Do not drive or operate heavy machinery within 24 hrs of surgery or while taking narcotic pain medication.? Pain Control/Medications * If you received an anesthetic block, your hand or arm may be numb for several hours. You will be discharged to home with medications, including an oral pain medication (analgesic). Rest and elevation are still one of the most important factors for pain control. Take your pain medication as needed, but do not wait for the pain to become out of control. * For severe pain, you may take prescription pain medication as directed, but please note that this may also contain Tylenol (e.g. Percocet). Do not take more than 4000mg of Tylenol (acetaminophen) from all sources daily.? * Pain medication may cause some lethargy, nausea, and or constipation. You should not drive/operate dangerous machinery while taking these medications. If these or other symptoms become significantly problematic, please your surgeon's office. * If prescribed oral antibiotics (Keflex, Clindamycin, or others), please take prescription for full duration as instructed. You should not have any pills remaining once completed (refills are written for your convenience should the course need to be extended, but generally they are not required). Diet (what I can eat): Resume normal diet Follow up * You will be seen (most likely) 1-2 weeks after surgery depending on the procedure. Follow-up appointment reminders:? (A list of any scheduled appointments is at the end of this document)? At your earliest convenience, please call [phone] to confirm/schedule a follow-up appointment with me in clinic on Thursday at [facility] When to call your surgeon: * If any signs of surgical site infection develop: redness, pus, pain, increased swelling or foul odor at the incision site, fever, cold and clammy skin, or confusion. * Consistent temperature above 101?F (38.3?C). * The affected area gets swollen or much more painful. * You have excessive bleeding from surgical site (soaking through). If you experience difficulty breathing and/or shortness of breath, seek immediate medical attention. If experiencing any of the above complications or if you have any questions, call [phone] Print Language: Ethiopian Discharge Orders/Prescriptions Prescriptions: New oxycodone 5 mg tablet 5 mg PO Q8H PRN (Reason: pain) 5 Days Qty: 14 0RF cephalexin 500 mg capsule 500 mg PO Q8H 7 Days Qty: 21 0RF Disposition Disposition (needs filled in before D/C Order can be placed): Home, Self Care Charges/Coding Procedures Integumentary [id number]: [id number] Global Visit
== END 2024-11-04 11:20 | disposition home or self-care (01) ==
LOC: ED 15:29 → SDC 15:32 → ACINP 15:33 → MS3 11-04 09:01 → SDC 11-04 15:47 → MS3 11-04 15:47
PROVIDERS: Admitting Provider Surgery Plastic and Reconstructive Surgery; Emergency Provider Emergency Medicine; PCP Family Medicine; Visit Provider Surgery Plastic and Reconstructive Surgery
PROC: (CPT 26951; principal; 2024-11-03 15:30)
DX: S68.117A Complete traumatic metacarpophalangeal amputation of left little finger, initial encounter (principal); F17.200 Nicotine dependence, unspecified, uncomplicated; Z23 Encounter for immunization; S62.615B Displaced fracture of proximal phalanx of left ring finger, initial encounter for open fracture; W31.2XXA Contact with powered woodworking and forming machines, initial encounter; Y93.89 Activity, other specified; Y99.0 Civilian activity done for income or pay; Y92.89 Other specified places as the place of occurrence of the external cause; S62.307B Unspecified fracture of fifth metacarpal bone, left hand, initial encounter for open fracture
CPT/HCPCS: 26951; 11012; 13133; 13132; 36415; 73130; 76000; 80048; 85014; 85018; 85025; 88302; 88305; 88311; 90715; 93005; 96365; 96372; 96375; 96376; 99221; 99285; P9047; A4216; G0378; J2405

== ENCOUNTER → 2024-12-14 | Outpatient (CLI) | payer OTHER, SELFPAY ==
--- NOTE | 2024-12-14 08:31 | ECHOD_ITS ---
Reason For Study Reason For Study: ARRHYTHMIA Procedure This was a 2D Doppler, Color Flow transthoracic echocardiogram. Exam performed in department. Left Ventricle Normal LV size. Mild concentric left ventricular hypertrophy. Left ventricular systolic function is normal. Stage 1 diastolic dysfunction. The left ventricular ejection fraction is 55 %. No regional wall motion abnormalities noted. Right Ventricle Normal RV size. Normal systolic function. Atria Normal left atrium. Normal right atrium. Mitral Valve Normal mitral valve. Tricuspid Valve Normal tricuspid valve. Mild (1+) tricuspid valve insufficiency. Pulmonary artery systolic pressure is 30 mmHg. Aortic Valve Trisinus/trileaflet aortic valve. Mild focal aortic valve thickening. Pulmonic Valve Normal pulmonic valve. Great Vessels Normal aortic root. The pulmonary artery is normal size. Normal inferior vena cava. Pericardium/Pleural No pericardial effusion. MMode/2D Measurements & Calculations LVIDd: 4.2 cm IVSd: 1.4 cm Ao root diam: 3.4 cm LVIDs: 3.1 cm LVPWd: 1.3 cm RVDd: 3.7 cm FS: 25.9 % LAV(MOD-bp): 51.9 ml LVAd ap4: 30.5 cm2 SV(MOD-sp4): 40.5 ml LAV(MOD-bp) Indexed: 27.1 ml/m2 LVLd ap4: 8.4 cm SI(MOD-sp4): 21.2 ml/m2 LAV(MOD-sp2): 50.7 ml EDV(MOD-sp4): 89.0 ml LAV(MOD-sp4): 48.4 ml EDV(sp4-el): 93.7 ml LVAs ap4: 20.7 cm2 LVLs ap4: 7.4 cm ESV(MOD-sp4): 48.5 ml ESV(sp4-el): 49.1 ml EF(MOD-sp4): 45.5 % EF(sp4-el): 47.6 % SV(sp4-el): 44.6 ml LA A4 area: 17.6 cm2 LA dimension(2D): 4.2 cm RA A4 area: 15.3 cm2 TAPSE: 1.8 cm Time Measurements MV dec time: 0.15 sec Doppler Measurements & Calculations MV E max seamus: 54.7 cm/sec Lat Peak E' Seamus: 6.9 cm/sec Med Peak E' Seamus: 5.3 cm/sec MV A max seamus: 77.0 cm/sec E/E' lat: 7.9 E/E' med: 10.3 MV E/A: 0.71 Ao V2 max: 117.3 cm/sec AI max seamus: 516.7 cm/sec LV V1 max: 76.2 cm/sec Ao max P.5 mmHg AI max P.8 mmHg LV V1 max P.3 mmHg AI dec slope: 343.9 cm/sec2 AI P1/2t: 440.1 msec PA V2 max: 177.0 cm/sec TR max seamus: 264.3 cm/sec TR max P.0 mmHg ECHO/Echo Complete Interpretation Summary Normal LV size. Left ventricular systolic function is normal. Mild focal aortic valve thickening. Mild concentric left ventricular hypertrophy. Stage 1 diastolic dysfunction. The left ventricular ejection fraction is 55 %. Pulmonary artery systolic pressure is 30 mmHg. Ordering Physician: Steph Tapia Referring Physician: HARPER CEBALLOS Performed By: Araceli Mccoy RDCS
== END | disposition home or self-care (01) ==
LOC: CVS 08:26
PROVIDERS: PCP Family Medicine; Referring Provider Nurse Practitioner Family; Visit Provider Nurse Practitioner Family
DX: I49.9 Cardiac arrhythmia, unspecified (principal)
CPT/HCPCS: 93225; 93226; 93306